=== PATIENT | female | born 1980 | race Caucasian/White ===

== ENCOUNTER 2019-03-31 15:14 | Outpatient (CLI) | payer OTHER ==
--- NOTE | 2019-03-31 16:40 | RAD ---
LUMBAR SPINE TWO VIEWS: HISTORY: Disability evaluation. FINDINGS: Extensive rods and screws stabilizing the lumbothoracic spine from L4 through T10, with evidence for laminectomy and L1 vertebral body deformity, probably secondary to an old injury. No significant mal alignment. IMPRESSION: Extensive postoperative changes. No evidence for acute process. POS: RRE
--- NOTE | 2019-03-31 16:42 | RAD ---
THORACIC SPINE TWO VIEWS: HISTORY: Disability evaluation. FINDINGS: Rios rods and screws stabilize the lower thoracic and lumbar spine regions. Evidence for multi ple gallstones. Disk spaces appear adequately preserved. No evidence for acute fracture, dislocatio n, or malalignment. Stable from prior study. IMPRESSION: 1. Stable postoperative changes of the lumbothoracic vertebral column. 2. No significant acute process. 3. Evidence for multiple gallstones. POS: RRE
== END 2019-03-31 15:15 | disposition home or self-care (01) ==
LOC: BICRAD 15:14
PROVIDERS: ATTEND Internal Medicine
DX: Z02.71 Encounter for disability determination (principal); K80.20 Calculus of gallbladder without cholecystitis without obstruction; Z98.890 Other specified postprocedural states
CPT/HCPCS: 72070; 72100

== ENCOUNTER 2021-09-23 10:10 | Outpatient (CLI) | payer OTHER | END 2021-09-23 10:11 | disposition home or self-care (01) | LOC: DTY/OP 10:10 | PROVIDERS: ATTEND Family Medicine | DX: E66.9 Obesity, unspecified (principal) | CPT/HCPCS: 97802 ==